=== PATIENT | female | born 1950 | race Hispanic/Latino ===

== ENCOUNTER → 2020-04-02 | Outpatient (CLI) | payer MEDICARE | END | disposition home or self-care (01) | LOC: SHCH 15:09 | PROVIDERS: ATTEND Internal Medicine Cardiovascular Disease | DX: I65.23 Occlusion and stenosis of bilateral carotid arteries (principal) | CPT/HCPCS: 93880 ==

== ENCOUNTER → 2020-10-02 | Outpatient (CLI) | payer MEDICARE ==
[~2020-10-02] MED LIST: NITROGLYCERIN 4.1 GM SPRAY TL ONE
== END | disposition home or self-care (01) ==
LOC: RAH 10:00
PROVIDERS: ATTEND Internal Medicine Cardiovascular Disease
DX: R06.09 Other forms of dyspnea (principal); R07.89 Other chest pain
CPT/HCPCS: 78452; 93017; 96374; A9500 ×2